=== PATIENT | female | born 1965 | race Caucasian/White ===

== ENCOUNTER 2016-10-20 05:43 | Day surgery (SDC) | payer MEDICARE, OTHER ==
--- NOTE | 2016-10-19 12:52 | HP ---
DATE OF CLINIC: 10/13/2016 SIA AUSTIN : 1965 PLANNED PROCEDURE: Right Carpal Tunnel Release DATE OF SURGERY: October 20, 2016 SURGEON: Yandel Benjamin M.D. HISTORY OF PRESENT ILLNESS Sia Austin is a 50 year old female. * Medication list reviewed with patient allergy list reviewed with patient. * Tried NSAIDS * Has not tried Physical Therapy * Has not tried Injections 50-year-old female who is here for complaints of right long and index finger numbness and tingling for a number of years. Patient states that she has had on and off tingling and numbness in the hand, but it is now persistent. She states that she has tried bracing, activity modification without any significant relief of her symptoms. She doesn't have a lot of pain, it is more just the numbness and tingling. She has similar complaints, but with less severity on the left side. She has not had any surgery for it or any injections. After discussion and review of treatment options, both operative and non-operative, she has elected to proceed with right CTR and presents today preoperative. Past medical and surgical history as documented in the chart. CURRENT MEDICATION * *DME MISC, as directed Mask for CPAP machine Dx: 327.23fax to [facility]; lifetime use, 30 days, 0 refills * *Narcotic Contract Miscellaneous see agreement signed, 30 days, 0 refills * Aspirin 81 MG Tablet 1 once a day 0 days, 0 refills * Blood Glucose Test Strip as directed for TapFwd Ultra Mini device; test 1-4 times daily for diabetes; DX E11.9, 30 days, Prescribe As Needed. * Cinnamon Plus Chromium 50-500 MCG-MG Capsule 2 once a day 0 days, 0 refills * Cortisporin 3.5-81005-0 Solution Cortisporin Otic; 3 gtts in affected ears tid times 7 days, then intermittently after that, 30 days, 4 refills * Lexapro 20 MG Tablet 1 once a day; [facility], 90 days, 3 refills * Lisinopril 10 MG Tablet as directed; updating dose, 60 days, 4 refills * Meclizine HCl 25 MG Tablet 1 every 4 - 6 hours as needed, 90 days, 2 refills * MetFORMIN HCl ER 500 MG Tablet Extended Release 24 Hour as directed TAKE 4 TABLETS BY MOUTH ONCE EVERY DAY, 90 days, 3 refills * Metoclopramide HCl 5 MG/ML Solution four times a day USE DIRECTED 1 TABLET BEFORE MEALS AND AT BEDTIME, 30 days, 5 refills * Nystatin 821760 UNIT/GM Powder AAA daily for chronic yeast, 30 days, 4 refills * Direct Grid TechnologiesTouch Ultra Blue Strip test glucose twice daily for diabetes, 30 days, Prescribe As Needed. * Direct Grid TechnologiesTouch Ultra Mini w/Device KIT, as directed Dx: 250.02, test 1-4 times per day as directed for diabetes, 30 days, 0 refills * Pantoprazole Sodium 40 MG Tablet Delayed Release 1 once a day TAKE ONE TABLET BY MOUTH ONCE EVERY DAY, 90 days, 3 refills * Phentermine HCl 37.5 MG Tablet 1 once a day 0 days, 0 refills * Pseudoephedrine HCl 60 MG TABS, as directed take 1 po q 6-8 hrs prn congestion, 30 days, 0 refills * Transderm-Scop (1.5 MG) 1 MG/3DAYS Patch 72 Hour 1 patch transdermal q 72 hrs prn motion sickness, 30 days, 0 refills * Triamterene-HCTZ 37.5-25 MG Tablet 1 once a day; fax to [facility], 90 days, 3 refills PAST MEDICAL/SURGICAL HISTORY Reported: Medical: Reported numbness, Reported tingling, Diabetes Mellitus, history of Arthritis, Depression, and Hypertension. Surgical / Procedural: Prior surgery Breast Biopsy 1999, surgical breast biopsy knee surgery nos, replacement of a knee Right TKA 02/17/[address] Yandel Benjamin at [facility], and Arthroscopy Right knee mensicectomy 2000. Medications: Taking prophylactic aspirin and vitamin supplements MVI. Dietary: Weight control. Diagnoses: Hypertension. Diabetes mellitus. Depression Anxiety disorder NOS panic attacks hyperlipidemia irregular heart beat reflux Surgical: * Hysterectomy 1999 SOCIAL HISTORY Social history unchanged. Personal: Life circumstance event bad performance review at work in October 2009, work-related circumstances has been having to "let people go" at work; finds herself making uncharacteristic mistakes, and recent emotional stress. Diet: Diet needs improvement. Behavioral: Caffeine use Occasionally, former smoker quit as a teenager, non-smoker quit smoking, and never smoked. Smoking status: Never smoker. Habits: Not exercising regularly, exercise inhibited by condition pain in knees and hips, a recent increase in physical activity water aerobics, poor physical condition, and sedentary lifestyle due to knee pain; worse on the right side. Home Environment: Lives with spouse. 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 Right knee medial based pain for a number of years. She reports having arthroscopy for MMT in roughly 2001. ALLERGIES * Codeine Derivatives Reaction: Nausea/Vomiting/Diarrhea * Erythromycin Derivatives Reaction: Nausea/Vomiting/Diarrhea * Latex Reaction: Skin Rashes/Hives FAMILY HISTORY 2 children living Hypertension Diabetes mellitus Depression hyperlipidemia Breast cancer Paternal: Stroke syndrome due to Family medical history Mother- Heart Disease, Osteoarthritis, Depression Father- Stroke, Hypertension Brother- Diabetes, Osteoarthritis Sister- Diabetes, Osteoarthritis, Thyroid Disease, Bleeding Disorder, MS REVIEW OF SYSTEMS No recent constitutional symptoms to include fevers and chills. No recent cardiovascular symptoms to include chest pain or palpitations. No recent respiratory symptoms to include shortness of breath or recent infections. PHYSICAL FINDINGS * Vitals taken 10/13/2016 10:52 am BP-Sitting L 132/83 mmHg BP Cuff Size Regular Pulse Rate-Sitting 80 bpm Temp-Oral 97.7 F Height 63 in Weight 201 lbs Body Mass Index 35.6 kg/m2 Body Surface Area 1.94 m2 Pain Level 3 Neurological: Motor: * Dominant Hand = Right Hand. Patient is a well-developed, well-nourished female in no acute distress. She is awake, alert and conversant throughout the encounter. CARDIOVASCULAR: Intact peripheral pulses on bilateral upper extremities. No significant edema on inspection of bilateral upper extremities. NEUROLOGIC: Patient had intact coordinated composite motion of the bilateral upper extremities and sensation intact to light touch in all distributions of bilateral upper extremities. PSYCHIATRIC: Patient was oriented to person, place and time and displayed appropriate mood and affect during the encounter. SKIN: Exam of the skin on bilateral upper extremities showed no significant scars, lesions, rashes or masses. FOCUSED MUSCULOSKELETAL EXAM: Patient has normal resting station of the shoulders, elbows and wrists. Her right hand shows no significant erythema, ecchymosis swelling. She has no wasting of the thenar or hypothenar musculature. She has a well perfused hand with brisk capillary refill and 2+ radial pulse on both sides. Her right hand shows a positive Tinel's, positive flexion and compression, positive Phalen's test at the wrist with increasing paresthesias in the radial 3.5 digits. She has a negative Tinel's at the elbow. She has a codominant flow on an Demond test. There is no evidence of instability at the carpus and she has full strength in ROM in all planes with the hand. IMAGING Review of previous nerve conduction studies from June of 2014 demonstrate moderate carpal tunnel syndrome without evidence of denurvation. ASSESSMENT 50-year-old female with right wrist carpal tunnel syndrome. THERAPY * Patient not eligible for fall risk assessment. PLAN * Carpal tunnel syndrome, right upper limb Percocet 5-325 MG TABS, 1 every 4 - 6 hours as needed, 30 days, 0 refills * Decompression of median nerve at carpal tunnel -right CARE TEAM Bekah Corrales MD [facility] SURGICAL CONSENT We have discussed surgical options including right CTR and non-operative management. The patient was counseled in detail regarding the diagnosis, treatment options available, prognosis of each treatment option and the potential risks and complications. The risks of surgery include, but are not limited to, anesthetic , neurovascular complications, pulmonary embolism, deep vein thrombosis, wound dehiscence, failure of any or all of the discussed procedures, infection of the joint or surrounding soft tissue, need for revision surgery, chronic pain, limitations in activities of daily living, inability to return to work, and loss of normal range of motion or functional use of the extremity. There is the possibility of failure over time that may require additional operative or non-operative treatment. The patient acknowledged that there are a number of perioperative risks not mentioned here and would still like to proceed. The patient is aware of and understands these risks, and wishes to proceed with the proposed surgical procedure and other procedures as indicated at the time of surgery. We will have the patient see their PCP for a preoperative medical risk assessment. The preoperative instructions were reviewed with the patient and all questions were answered. PB/sg
[2016-10-20] MEDS ORDERED: IV START KIT ONE ×2 (05:44→06:54)
[2016-10-20] MEDS ORDERED: SODIUM CHLORIDE 0.9% 1,000 ML ONE (05:45)
[2016-10-20] MEDS ORDERED: CEFAZOLIN SODIUM 2 GRAM PREMIX 100 ML IV PRN (06:10)
[2016-10-20] MEDS ORDERED: CEFAZOLIN SODIUM 2 GRAM PREMIX 100 ML IV ONE (06:13)
[2016-10-20] MEDS ORDERED: SODIUM CHLORIDE 0.9% FLUSH 10 ML ONE (06:54)
[2016-10-20] MEDS ORDERED: LIDOCAINE 0.5% (PRES FREE) 50 ML VIAL ONE (06:54)
[2016-10-20] MEDS ORDERED: FENTANYL 100 MCG/2 ML VIAL ONE (07:09)
[2016-10-20] MEDS ORDERED: MIDAZOLAM HCL 1 MG/ML 2ML VIAL ONE (07:09)
[2016-10-20] MEDS ORDERED: PROPOFOL 40 ML IV ONE (07:56)
[2016-10-20] MEDS ORDERED: BUPIVACAINE 0.5% W/EPI SDV 30 ML VIAL ONE (07:56)
[2016-10-20] MEDS ORDERED: LIDOCAINE 2% (PRES FREE) 5 ML VIAL ONE (07:56)
--- NOTE | 2016-10-20 08:17 | PCMBPN ---
Brief Post Op Note: Date of Procedure: 10/20/16 Start Time: 729 Preoperative Diagnosis: 1. right carpal tunnel syndrome Postoperative Diagnosis: 1. Same Procedure: right open carpal tunnel release Surgeon: Yandel Benjamin MD Assist: none Anesthesia: Renetta Kenny Findings: as above Condition: stable to SDS Complications: none IV Fluids: 500 mLs of LR Urine Output: 0 mLs Estimated Blood Loss: 1 mLs Tourniquet Time: 28 min at 250 mm Hg ([place] block) Specimens: none Implants: none Drains: none Yandel Benjamin mD
[2016-10-20] MEDS ORDERED: OXYCODONE/ACETAMINOPHEN 5/325 MG TABLET PO PRN (08:19)
[2016-10-20] MEDS ORDERED: LACTATED RINGERS 1,000 ML IV SCH (08:19)
[2016-10-20] MEDS ORDERED: ONDANSETRON 4 MG/2ML 2 ML VIAL IV PRN (08:19)
[2016-10-20] MEDS ORDERED: HYDROMORPHONE HCL 1 MG/ML SYRINGE IV PRN (08:19)
[2016-10-20] MEDS ORDERED: ACETAMINOPHEN 325 MG TABLET PO PRN (08:19)
[2016-10-20] MEDS ORDERED: OXYCODONE/ACETAMINOPHEN 5/325 MG TABLET ONE (08:24)
--- NOTE | 2016-10-21 09:19 | OP ---
Kimberly BURT : 1965 [id number] DATE OF SERVICE: October 20, 2016 PREOPERATIVE DIAGNOSIS: Right carpal tunnel syndrome. POSTOPERATIVE DIAGNOSIS: Right carpal tunnel syndrome. PROCEDURE PERFORMED: RIGHT CARPAL TUNNEL RELEASE. SURGEON: Yandel Benjamin M.D. BOTTOM LOADER: None. ANESTHESIA: Hoa Lees[place]atoya for a [place] block. SPECIMENS: No material was sent to the laboratory. ESTIMATED BLOOD LOSS: 1 mL FLUIDS REPLACED: 500 mL of crystalloid. TOURNIQUET TIME: 28 minutes at 250 mmHg. IMPLANTS: None. DRAINS: None. INDICATIONS: This is a 50-year-old right hand dominant patient with history, physical exam and neurodiagnostic findings of right carpal tunnel syndrome, which has failed to be relieved by nonoperative measures. Risks, benefits and alternatives of an open carpal tunnel release were discussed with the patient and they elected to proceed with surgery. Informed consent was obtained and documented in the chart and the patient was placed on the schedule the first available convenience. DESCRIPTION OF PROCEDURE: The patient was identified in the pre-operative holding area where they were marked with an indelible marker by the operating surgeon. The patient was taken to the operating room where they were placed in the supine position on the operating room table. A [place] block anesthetic was administered by the anesthesia provider. The patient was prepped and draped in the usual sterile fashion for surgery and received perioperative antibiotics prior to the inflation of the tourniquet. A final operative time out was performed and confirmed by all members of the operative team and a longitudinal incision was made on the patient's hand just 6 mm ulnar to the thenar flexion crease. Dissection was carried down identifying transverse fibers of the transverse carpal ligament. This was sharply divided at its proximal extent and the median nerve was visualized. A [place] elevator was passed into the carpal tunnel to protect the nerve while the remainder of the transverse carpal ligament was sharply divided. This was carried distally until we encountered the perivascular fat of the vascular arches. The tenotomy scissors were passed both superficial and deep to the distal volar forearm fascia proximally and no transligamentous branches of the nerve were identified. Under direct visualization a push cut technique was used to divide the proximal portion of the transverse carpal ligament and the distal volar forearm fascia. At this point we felt that we had achieved an adequate release of the patient's nerves so the wound was copiously irrigated with sterile saline and closed with horizontal mattress sutures of #4-0 Nylon. A sterile dressing of Xeroform, fluffs, web roll and an MILTON bandage was applied. The tourniquet was deflated, the drapes were removed. The patient was transferred to a stretcher and taken postoperatively to the same day surgery unit in stable condition. There were no observed intraoperative complications during this procedure. Job [id number] Cc: [facility]
== END 2016-10-20 09:05 | disposition home or self-care (01) ==
LOC: SDC 05:43
PROVIDERS: ATTEND Orthopaedic Surgery
PROC: 01N50ZZ Release Median Nerve, Open Approach (ICD-10-PCS; principal; 2016-10-20)
DX: G56.01 Carpal tunnel syndrome, right upper limb (principal); Z79.82 Long term (current) use of aspirin; Z79.891 Long term (current) use of opiate analgesic; Z79.84 Long term (current) use of oral hypoglycemic drugs; E11.9 Type 2 diabetes mellitus without complications; I10 Essential (primary) hypertension; M19.90 Unspecified osteoarthritis, unspecified site; F32.9 Major depressive disorder, single episode, unspecified; F41.9 Anxiety disorder, unspecified; E78.5 Hyperlipidemia, unspecified; K21.9 Gastro-esophageal reflux disease without esophagitis; I49.9 Cardiac arrhythmia, unspecified; Z96.651 Presence of right artificial knee joint; Z87.891 Personal history of nicotine dependence; Z88.5 Allergy status to narcotic agent; Z88.1 Allergy status to other antibiotic agents; Z91.040 Latex allergy status